=== PATIENT | female | born 1990 | race Caucasian/White ===

== ENCOUNTER 2019-01-16 05:32 | Inpatient (IN) | payer OTHER, MEDICAID ==
[2019-01-16] VITALS (20 sets, daily range): BP systolic 103–129; BP diastolic 42–95; PULSE 59–78; TEMP 97.6–99
[~2019-01-16] VITALS: Ht 170.2 cm; Wt 85.0 kg
[~2019-01-16 05:32] MED LIST: MOTRIN 600600 MG/TAB PO; PERCOCET 325 MG1 TA2 PO; PRENATAL1 TA7 PO
--- NOTE | 2019-01-16 05:45 | NUR ---
Ambulatory to unit for scheduled repeat C/Section, accompanied by spouse, oriented to room, plan of care.
[2019-01-16] MEDS ORDERED: PROFERRIN ES12 MG PO (06:17)
--- NOTE | 2019-01-16 06:30 | NUR ---
PATIENT IN 210 FOR REPEAT SECTION. IV STARTED X2 ATTEMPTS. LR RUNNING. CONSENTS SIGNED. ASSEMENT COMPLETE, QUESTIONS ANSWERED. PATIENT SHAVED ON MONS PUBIS. PATIENT DENIES CONTRACTIONS, BLEEDING OR LEAKING OF FLUID. PATIENT ON EFM. VITALS OBTAINED. AWAITING CEAREAN SECTION.
[2019-01-16 06:46] LABS: HEMOGLOBIN 10.6 g/dl (12.5-16.0); MEAN CELL VOLUME 85 fl (80.0-100.0); MEAN CORPUSCULAR HEMOGLOBIN 28 pg (27.0-31.0); MEAN CORPUSCULAR HGB CONC 33 g/dl (33.0-37.0); MEAN PLATELET VOLUME 11.5 fl (7.4-10.4); PLATELET COUNT 165 K/mm3 (130-400); RED BLOOD COUNT 3.76 M/mm3 (4.10-5.30); REDCELL DISTRIBUTION WIDTH-CV 15.4 % (11.5-14.5)
[2019-01-16 06:51] LABS: HEMATOCRIT 31.8 % (37.0-47.0)
[2019-01-16 08:37] LABS: BAND 5 % (0-10); EOSINOPHIL 2 % (0-4); LYMPHOCYTE 17 % (20.0-51.0); METAMYELOCYTE 1 % (0-0); NEUTROPHILS 73 % (42.0-75.2); OVALOCYTES 1+; PLATELET ESTIMATE NORMAL (NORMAL)
[2019-01-17] VITALS: BP 123/59; PULSE 66; TEMP 97.9
[2019-01-17 04:00] VITALS: BP 110/59; PULSE 66; TEMP 99.1
[2019-01-17] MEDS ORDERED: IBU600 MG PO (08:15)
[2019-01-17] MEDS ORDERED: PERCOCET 325 MG1 TA2 PO (08:15)
--- NOTE | 2019-01-17 09:48 | NUR ---
Initial visit attempt; Mom in Nursery, Insurance Special Agent left card of congratulations for the of her son and information regarding the availability of spiritual care at [facility].
[2019-01-17 16:53] VITALS: BP 114/68; PULSE 76; TEMP 98.4
[2019-01-17 21:30] VITALS: BP 106/55; PULSE 73; TEMP 97.7
--- NOTE | 2019-01-18 07:52 | NUR ---
PT ASLEEP, REPORT RECEIVED FROM OFF GOING RNKIMBERLEY. CARE TAKEN OVER BY THIS RN.
[2019-01-18 09:12] VITALS: BP 125/64; PULSE 93; TEMP 99
--- NOTE | 2019-01-18 12:04 | NUR ---
CALL TO [facility] FOR DISCHARGE ORDERS. DR. PORTILLO PRINTED SCRIPT BUT DID NOT SIGN, PT'S WILL RUN SCRIPT BY DR PORTILLO'S OFFICE TO SIGN.
== END 2019-01-18 14:10 | disposition home or self-care (01) | DRG 788 ==
LOC: OB 05:32 → LDR 10:33 → OB 01-18 14:10
PROVIDERS: ADMIT Obstetrics & Gynecology
PROC: 10D00Z1 Extraction of Products of Conception, Low, Open Approach (ICD-10-PCS; principal; 2019-01-16)
DX: O34.211 Maternal care for low transverse scar from previous cesarean delivery (principal); O99.02 Anemia complicating childbirth; D64.9 Anemia, unspecified; Z3A.39 39 weeks gestation of pregnancy; Z37.0 Single live birth
CPT/HCPCS: J1580; J1885; J2370; J2405; J2590; J3010; J7120

== ENCOUNTER 2023-09-15 05:26 | Inpatient (IN) | payer BC ==
[~2023-09-15] VITALS: Ht 168.9 cm; Wt 90.0 kg
[2023-09-15] VITALS (17 sets, daily range): BP systolic 81–118; BP diastolic 44–90; PULSE 62–79; TEMP 98.2–98.4
[~2023-09-15 05:26] MED LIST changes: +IBU600 MG PO; +PROFERRIN ES12 MG PO
[2023-09-15] MEDS ORDERED: LR 1,000 ML IV SCH ×2 (05:45)
--- NOTE | 2023-09-15 06:15 | NUR ---
Pt ambulatory to unit accompanied by spouse and shown to room by staff. Here for a repeat by Dr Bernal. Consents discussed and signed, IV started and POC discussed with pt and spouse. Opportunity for questions given and answered.
[2023-09-15] MEDS ORDERED: droPERidol 2.5 MG/ML 2 ML VIAL IV PRN (06:30)
[2023-09-15] MEDS ORDERED: Ondansetron 4 MG/2 ML VIAL IV PRN ×2 (06:30→08:30)
[2023-09-15] MEDS ORDERED: Meperidine 50 MG/ML 1 ML VIAL IV PRN (06:30)
[2023-09-15] MEDS ORDERED: diphenhydrAMINE 50 MG/ML 1 ML VIAL IV PRN (06:30)
[2023-09-15 06:58] LABS: HEMATOCRIT 34.9 % (37.0-47.0); HEMOGLOBIN 11.6 g/dl (12.5-16.0); MEAN CELL VOLUME 85 fl (80.0-100.0); MEAN CORPUSCULAR HEMOGLOBIN 28 pg (27-31); MEAN CORPUSCULAR HGB CONC 33 g/dl (33.0-37.0); PLATELET COUNT 141 K/mm3 (130-400); RED BLOOD COUNT 4.11 M/mm3 (4.10-5.30); REDCELL DISTRIBUTION WIDTH-CV 15.2 % (11.5-14.5)
[2023-09-15] MEDS ORDERED: PRENATAL TABLET (06:58)
[2023-09-15] MEDS ORDERED: Ondansetron 4 MG/2 ML VIAL ONE (07:05)
[2023-09-15] MEDS ORDERED: Oxytocin 10 UNITS/ML VIAL ONE (07:05)
[2023-09-15] MEDS ORDERED: NS 30 ML IV ONE (07:05)
[2023-09-15] MEDS ORDERED: Ketorolac 30 MG/ML VIAL ONE (07:05)
[2023-09-15] MEDS ORDERED: dexAMETHasone 10 MG/ML VIAL ONE (07:05)
[2023-09-15] MEDS ORDERED: Phenylephrine 10 MG/ML VIAL ONE (07:09)
[2023-09-15] MEDS ORDERED: EPINEPHrine 1 MG/1 ML Ampule ONE (07:35)
[2023-09-15] MEDS ORDERED: Measles/Mumps/Rubella Virus Vaccine Live w Diluent 0.5 ML VIAL SQ SCH (08:30)
[2023-09-15] MEDS ORDERED: Magnes Hydrox (MOM) 80 MG/ML 30 ML CUP PO PRN (08:30)
[2023-09-15] MEDS ORDERED: LR 1,000 ML IV PRN (08:30)
[2023-09-15] MEDS ORDERED: oxyCODONE 5 MG TAB PO PRN (08:30)
[2023-09-15] MEDS ORDERED: Loratadine 10 MG TAB PO PRN (08:30)
[2023-09-15] MEDS ORDERED: Morphine 4 MG/ML VIAL IV PRN (08:30)
[2023-09-15] MEDS ORDERED: Naloxone 0.4 MG/ML VIAL IV PRN (08:30)
[2023-09-15] MEDS ORDERED: Acetaminophen 500 MG TAB PO SCH (08:30)
[2023-09-15 09:38] LABS: BAND 0 % (0-10)
[2023-09-15 09:39] LABS: ANISOCYTOSIS 1+; LYMPHOCYTE 10 % (20.0-51.0); NEUTROPHILS 82 % (42.0-75.2); PLATELET ESTIMATE NORMAL (NORMAL); TEAR DROP CELLS 1+
[2023-09-15] MEDS ORDERED: Ibuprofen 600 MG TAB PO SCH (14:23)
--- NOTE | 2023-09-15 15:15 | NUR ---
REPORT TAKEN FROM BHARAT CASTILLO. ASSUMED CARE FOR REMAINDER OF SHIFT.
[2023-09-15] MEDS ORDERED: Sennosides/Docusate 8.6-50 MG TAB PO SCH (17:00)
[2023-09-15] MEDS ORDERED: traZODone 50 MG TAB PO PRN (21:00)
[2023-09-16 08:30] VITALS: BP 112/58; PULSE 67; TEMP 98
[2023-09-16] MEDS ORDERED: ROXICODONE 55 MG/TAB PO (08:32)
[2023-09-16 16:54] VITALS: BP 110/54; PULSE 70; TEMP 98.2
[2023-09-16 21:00] VITALS: BP 117/60; PULSE 80; TEMP 98.2
[2023-09-17 07:30] VITALS: BP 115/61; PULSE 70; TEMP 97.6
--- NOTE | 2023-09-17 15:58 | NUR ---
DISCHARGE INSTRUCTIONS REVIEWED WITH PATIENT. PATIENT VERBALIZED UNDERSTANDING OF DISCHARGE INFORMATION.
== END 2023-09-17 15:40 | disposition home or self-care (01) | DRG 788 ==
LOC: OB 05:26
PROVIDERS: Nurse Anesthetist, Certified Registered; ADMIT Obstetrics & Gynecology
PROC: 10D00Z1 Extraction of Products of Conception, Low, Open Approach (ICD-10-PCS; principal; 2023-09-15)
DX: O34.211 Maternal care for low transverse scar from previous cesarean delivery (principal); O99.02 Anemia complicating childbirth; D64.9 Anemia, unspecified; Z37.0 Single live birth; Z3A.39 39 weeks gestation of pregnancy; Z88.8 Allergy status to other drugs, medicaments and biological substances
CPT/HCPCS: J0171; J0665; J0690; J1100; J1885; J2371; J2405; J2590; J7120